=== PATIENT | female | born 1980 | race Caucasian/White ===

== ENCOUNTER 2023-02-14 23:53 | Inpatient (IN) | payer MEDICAID ==
[~2023-02-14] VITALS: Ht 160 cm; Wt 56.7 kg
[2023-02-15 00:06] VITALS: O2SAT 99
[2023-02-15 01:38] LABS: BASOPHILS % 0.3 % (0.0-2.0); DIFFERENTIAL COMMENT 0; EOSINOPHILS % 1.5 % (0.0-5.0); HEMATOCRIT. 34.8 % (36.0-48.0); LYMPHOCYTES % 20.3 % (20.0-50.0); MEAN CORPUSCULAR HEMOGLOBIN 24.1 pg (28.0-32.0); MEAN CORPUSCULAR HGB CONC 31.8 g/dL (31.0-37.0); MEAN CORPUSCULAR VOLUME 75.9 fL (81.0-99.0); MEAN PLATELET VOLUME 8.6 fl (7.4-10.4); NEUTROPHILS % 69.9 % (40.0-76.0); PLATELET 217 x1000/uL (130-400); RED BLOOD CELL COUNT 4.58 mill/uL (4.2-5.4); RED CELL DISTRIBUTION WIDTH 19.2 % (11.6-14.6); WHITE BLOOD COUNT 8.6 x1000/uL (4.5-11.0)
[2023-02-15 01:50] LABS: ALANINE AMINOTRANSFERASE 15 IU/L (10-49); ALBUMIN 3.9 g/dL (3.2-4.8); ASPARTATE AMINOTRANSFERASE 12 IU/L (<34); BILIRUBIN TOTAL 0.4 mg/dL (0.1-1.0); CARBON DIOXIDE 23 mEq/L (21-32); CHLORIDE 98 mEq/L (98-107); CREATININE 0.7 mg/dL (0.6-1.0); GLUCOSE 398 mg/dL (70-105); POTASSIUM 3.9 mEq/L (3.5-5.1); SODIUM 131 mEq/L (136-145); UREA NITROGEN BLOOD 10 mg/dL (9-23)
[2023-02-15] MEDS ORDERED: ONDANSETRON HCL 4MG/2ML INJ IV NR (03:21)
[2023-02-15] MEDS ORDERED: MORPHINE SULFATE 4 MG/ML CPJ (NOT FOR IM USE) IV NR (03:21)
[2023-02-15] MEDS ORDERED: PIPERACILLIN/TAZO 3.375G/50ML 50 ML IV NR (03:30)
[2023-02-15] MEDS ORDERED: VANCOMYCIN 1G PREMIX 200 ML IV NR (03:30)
[2023-02-15] MEDS ORDERED: SODIUM CHLORIDE 0.9% 1000ML BAG (SEPSIS BOLUS) IV ONE (03:30)
[2023-02-15 06:01] LABS: HCG SCREEN NEGATIVE
[2023-02-15] MEDS ORDERED: CEFEPIME 1,000 MG in DEXTROSE 5% WATER 50 ML IV SCH (07:30)
[2023-02-15] MEDS ORDERED: ONDANSETRON HCL 4MG/2ML INJ IV PRN (07:30)
[2023-02-15] MEDS ORDERED: GUAIFENESIN 200MG/10ML SUGAR FREE UDC PO PRN (07:30)
[2023-02-15] MEDS ORDERED: KETOROLAC 30MG/ML VIAL IV NR (07:30)
[2023-02-15] MEDS ORDERED: MAGNESIUM/ALUMINUM HYDROXIDE/SIMETHICONE 30ML UDC PO PRN (07:30)
[2023-02-15] MEDS ORDERED: DOCUSATE SODIUM 100MG CAPSULE PO PRN (07:30)
[2023-02-15] MEDS ORDERED: ACETAMINOPHEN 325MG TABLET PO PRN ×2 (07:30)
[2023-02-15] MEDS ORDERED: IPRATROPIUM/ALBUTEROL 0.5-3(2.5)MG/3ML NEB HHN PRN (07:30)
[2023-02-15] MEDS ORDERED: CEFEPIME 2,000 MG in DEXTROSE 5% WATER 50 ML IV SCH ×2 (08:00→11:00)
[2023-02-15] MEDS: ENOXAPARIN 40MG/0.4ML SYR SUBCUT SCH ×2 (10:00→13:28)
[2023-02-15] MEDS ORDERED: LORAZEPAM 2MG/ML INJ IV PRN (10:15)
[2023-02-15] MEDS: PANTOPRAZOLE SODIUM 40 MG/VIAL IV SCH (12:46)
[2023-02-15] MEDS: NICOTINE 14MG PATCH TD SCH (13:28)
[2023-02-15] MEDS: VANCOMYCIN 1G PREMIX 200 ML IV SCH ×2 (14:33→22:37)
[2023-02-15 16:00] VITALS: BP 99/72; PULSE 72; RESP 19; TEMP 97.9
[2023-02-15 16:19] VITALS: BP 101/70; PULSE 87; RESP 18; TEMP 97.7
[2023-02-15 17:16] LABS: CHOLESTEROL 189 mg/dL (<200); HDL CHOLESTEROL 36 mg/dL (>65); IRON 33 ug/dL (50-170); LDL CHOLESTEROL 133 mg/dL (5-100); TOTAL IRON BINDING CAPACITY 342 ug/dl (250-425); TRIGLYCERIDE 127 mg/dL (0-150)
[2023-02-15 17:19] LABS: ETHANOL BLOOD < 10 mg/dL (<10)
[2023-02-15 18:20] LABS: BETA HYDROXYBUTYRATE 0.2 mMol/L (0.0-0.3)
[2023-02-15] MEDS: CEFEPIME 2,000 MG in DEXT 5% WATER 100 ML IV SCH (18:51)
[2023-02-15 20:00] VITALS: BP 96/53; PULSE 91; RESP 20; TEMP 98.2
[2023-02-15] MEDS ORDERED: VANCOMYCIN 1G PREMIX 200 ML IV SCH (20:00)
[2023-02-15] MEDS: KETOROLAC 15MG/ML VIAL IV PRN (22:30)
[2023-02-16] VITALS: BP 85/53; PULSE 93; RESP 18; TEMP 97.9
[2023-02-16 04:00] VITALS: BP 86/60; PULSE 84; RESP 20; TEMP 97.8
[2023-02-16] MEDS: CEFEPIME 2,000 MG in DEXT 5% WATER 100 ML IV SCH (06:55)
[2023-02-16 07:43] LABS: CALCIUM 8.7 mg/dL (8.7-10.4); CARBON DIOXIDE 25 mEq/L (21-32); CHLORIDE 96 mEq/L (98-107); CREATININE 0.7 mg/dL (0.6-1.0); GLUCOSE 356 mg/dL (70-105); PHOSPHORUS 4.1 mg/dL (2.5-4.9); POTASSIUM 4.3 mEq/L (3.5-5.1); SODIUM 129 mEq/L (136-145); UREA NITROGEN BLOOD 17 mg/dL (9-23)
[2023-02-16 07:52] LABS: BASOPHILS % 0.3 % (0.0-2.0); DIFFERENTIAL COMMENT 0; EOSINOPHILS % 1.7 % (0.0-5.0); HEMATOCRIT. 33.1 % (36.0-48.0); HEMOGLOBIN. 10.4 g/dL (12.0-16.0); LYMPHOCYTES % 16.4 % (20.0-50.0); MEAN CORPUSCULAR HEMOGLOBIN 24.1 pg (28.0-32.0); MEAN CORPUSCULAR HGB CONC 31.4 g/dL (31.0-37.0); MEAN CORPUSCULAR VOLUME 76.7 fL (81.0-99.0); MEAN PLATELET VOLUME 8.8 fl (7.4-10.4); MONOCYTES % 7.4 % (2.0-8.0); NEUTROPHILS % 74.2 % (40.0-76.0); PLATELET 217 x1000/uL (130-400); RED BLOOD CELL COUNT 4.32 mill/uL (4.2-5.4); RED CELL DISTRIBUTION WIDTH 19.4 % (11.6-14.6); WHITE BLOOD COUNT 8.2 x1000/uL (4.5-11.0)
[2023-02-16 08:00] VITALS: BP 102/72; PULSE 85; RESP 18; TEMP 98.2
[2023-02-16] MEDS: SODIUM CHLORIDE 0.9% 1,000 ML IV SCH ×2 (08:00→20:30)
[2023-02-16] MEDS: NICOTINE 14MG PATCH TD SCH (09:08)
[2023-02-16] MEDS: VANCOMYCIN 1G PREMIX 200 ML IV SCH ×2 (09:08→21:30)
[2023-02-16] MEDS: ENOXAPARIN 40MG/0.4ML SYR SUBCUT SCH ×3 (09:08→10:00)
[2023-02-16] MEDS: KETOROLAC 15MG/ML VIAL IV PRN ×2 (09:09→17:26)
[2023-02-16] MEDS: PANTOPRAZOLE SODIUM 40 MG/VIAL IV SCH (09:09)
[2023-02-16] MEDS ORDERED: DEXTROSE 50% WATER 50ML SYRINGE IV PRN ×2 (11:15→18:15)
[2023-02-16 12:00] VITALS: BP 102/71; PULSE 89; RESP 19; TEMP 99.1
[2023-02-16] MEDS: BLOOD SUGAR DIAGNOSTIC STRIP TEST SCH ×3 (12:20→21:00)
[2023-02-16] MEDS: INSULIN LISPRO 100 UNITS/ML SUBCUT SCH ×2 (12:20→21:00)
[2023-02-16] MEDS: CEFTRIAXONE 2 G in DEXTROSE 5% WATER 50 ML IV SCH (14:40)
[2023-02-16 16:00] VITALS: BP 103/73; PULSE 84; RESP 20; TEMP 99
[2023-02-16 18:52] LABS: PROTHROMBIN TIME 10.3 sec (9.6-11.0)
[2023-02-16 19:09] LABS: CREATINE KINASE 26 IU/L (34-145); TROPONIN I HIGH SENSITIVITY 7 ng/L (3.0-34)
[2023-02-16 20:00] VITALS: BP 94/64; PULSE 83; RESP 18; TEMP 98.1
[2023-02-16] MEDS: ATORVASTATIN CALCIUM 40MG TABLET PO SCH (21:00)
[2023-02-16] MEDS: INSULIN GLARGINE 100 UNITS/ML SUBCUT SCH (21:18)
[2023-02-17] MEDS: BLOOD SUGAR DIAGNOSTIC STRIP TEST SCH ×4 (07:20→20:16)
[2023-02-17] MEDS: INSULIN LISPRO 100 UNITS/ML SUBCUT SCH ×7 (07:20→20:16)
[2023-02-17] MEDS ORDERED: LIDOCAINE HCL 1% 10 MG/ML 10ML VIAL ONE (07:36)
[2023-02-17 08:00] VITALS: BP 127/76; PULSE 87; RESP 20; TEMP 96.7
[2023-02-17] MEDS: FAMOTIDINE 20MG TABLET PO SCH ×2 (08:14→21:17)
[2023-02-17] MEDS: ENOXAPARIN 40MG/0.4ML SYR SUBCUT SCH (08:14)
[2023-02-17] MEDS: NICOTINE 14MG PATCH TD SCH (08:14)
[2023-02-17] MEDS: LORAZEPAM 1MG TABLET PO PRN (08:50)
[2023-02-17] MEDS: ASPIRIN 81MG TABLET PO SCH (08:50)
[2023-02-17] MEDS: VANCOMYCIN 1G PREMIX 200 ML IV SCH ×2 (09:00→20:04)
[2023-02-17 11:13] LABS: GLUCOSE URINE 3+ (NEGATIVE); KETONES URINE NEGATIVE (NEGATIVE)
[2023-02-17 12:53] LABS: *AMPHETAMINES SCREEN URINE PRESUMPTIVE POSITIVE (NEGATIVE); *BARBITURATES SCREEN URINE NEGATIVE (NEGATIVE); *BENZODIAZEPINES SCREEN URINE NEGATIVE (NEGATIVE); *COCAINE SCREEN URINE NEGATIVE (NEGATIVE); COLOR URINE YELLOW (YELLOW); ECSTASY MDMA SCREEN URINE NEGATIVE (NEGATIVE); LEUKOCYTE ESTERASE URINE NEGATIVE (NEGATIVE); METHADONE URINE SCREEN Neg (NEGATIVE); NITRITE URINE NEGATIVE (NEGATIVE); OCCULT BLOOD URINE NEGATIVE (NEGATIVE); OPIATES URINE SCREEN NEGATIVE (NEGATIVE); PHENCYCLIDINE URINE SCREEN NEGATIVE (NEGATIVE); PROTEIN URINE TRACE (NEGATIVE); SPECIFIC GRAVITY URINE 1.016 (1.005-1.030); UROBILINOGEN URINE 0.2 E.U./dL (0.2-1.0)
[2023-02-17 12:55] LABS: CLARITY URINE HAZY (CLEAR)
[2023-02-17 13:03] LABS: SQUAMOUS EPITHELIAL CELL URINE 3+ /lpf (RARE/1+)
[2023-02-17 13:04] LABS: BACTERIA URINE 1+; YEAST URINE 1+
[2023-02-17 13:05] LABS: RBC URINE NONE SEEN /hpf (0-2)
[2023-02-17] MEDS: CEFTRIAXONE 2 G in DEXTROSE 5% WATER 50 ML IV SCH (17:00)
[2023-02-17] MEDS: SODIUM CHLORIDE 0.9% 1,000 ML IV SCH ×2 (17:58→21:30)
[2023-02-17] MEDS: KETOROLAC 15MG/ML VIAL IV PRN (17:58)
[2023-02-17 20:00] VITALS: BP 90/66; PULSE 81; RESP 18; TEMP 97.9
[2023-02-17] MEDS: ATORVASTATIN CALCIUM 40MG TABLET PO SCH (21:17)
[2023-02-17] MEDS: INSULIN GLARGINE 100 UNITS/ML SUBCUT SCH (21:36)
[2023-02-18] MEDS: KETOROLAC 15MG/ML VIAL IV PRN ×2 (03:10→11:23)
[2023-02-18] MEDS: BLOOD SUGAR DIAGNOSTIC STRIP TEST SCH ×4 (06:56→20:57)
[2023-02-18] MEDS: INSULIN LISPRO 100 UNITS/ML SUBCUT SCH ×7 (06:58→22:20)
[2023-02-18 07:44] LABS: BASOPHILS % 0.3 % (0.0-2.0); DIFFERENTIAL COMMENT 0; EOSINOPHILS % 1.1 % (0.0-5.0); HEMATOCRIT. 33.9 % (36.0-48.0); HEMOGLOBIN. 10.8 g/dL (12.0-16.0); MEAN CORPUSCULAR HEMOGLOBIN 24.2 pg (28.0-32.0); MEAN CORPUSCULAR HGB CONC 31.8 g/dL (31.0-37.0); MEAN CORPUSCULAR VOLUME 76.2 fL (81.0-99.0); MEAN PLATELET VOLUME 8.2 fl (7.4-10.4); MONOCYTES % 5.1 % (2.0-8.0); NEUTROPHILS % 75.5 % (40.0-76.0); PLATELET 228 x1000/uL (130-400); RED BLOOD CELL COUNT 4.45 mill/uL (4.2-5.4); RED CELL DISTRIBUTION WIDTH 19.3 % (11.6-14.6)
[2023-02-18 08:00] VITALS: BP 105/69; PULSE 82; RESP 18; TEMP 98.2
[2023-02-18 08:06] LABS: CALCIUM 8.7 mg/dL (8.7-10.4); CARBON DIOXIDE 26 mEq/L (21-32); CHLORIDE 98 mEq/L (98-107); CREATININE 0.7 mg/dL (0.6-1.0); GLUCOSE 204 mg/dL (70-105); PHOSPHORUS 4.5 mg/dL (2.5-4.9); POTASSIUM 4.2 mEq/L (3.5-5.1); SODIUM 133 mEq/L (136-145); UREA NITROGEN BLOOD 16 mg/dL (9-23)
[2023-02-18] MEDS ORDERED: LIDOCAINE HCL 1% 10 MG/ML 10ML VIAL ONE (09:03)
[2023-02-18] MEDS: ASPIRIN 81MG TABLET PO SCH (09:13)
[2023-02-18] MEDS: FAMOTIDINE 20MG TABLET PO SCH ×2 (09:13→21:01)
[2023-02-18] MEDS: LORAZEPAM 1MG TABLET PO PRN (09:13)
[2023-02-18] MEDS: NICOTINE 14MG PATCH TD SCH (09:14)
[2023-02-18] MEDS: ENOXAPARIN 40MG/0.4ML SYR SUBCUT SCH (10:00)
[2023-02-18] MEDS: VANCOMYCIN 1G PREMIX 200 ML IV SCH (11:15)
[2023-02-18 12:00] VITALS: BP 129/71; PULSE 75; RESP 19; TEMP 97.5
[2023-02-18] MEDS: CEFTRIAXONE 2 G in DEXTROSE 5% WATER 50 ML IV SCH (14:09)
[2023-02-18] MEDS ORDERED: NALOXONE HCL 0.4MG/ML VIAL IV PRN (15:45)
[2023-02-18] MEDS ORDERED: MAGNESIUM 2 G PREMIX 50 ML IV NR (17:00)
[2023-02-18] MEDS ORDERED: VANCOMYCIN 750MG PREMIX 150 ML IV SCH (21:00)
[2023-02-18] MEDS: ATORVASTATIN CALCIUM 40MG TABLET PO SCH (21:01)
[2023-02-18] MEDS: HYDROCODONE/ACETAMINOPHEN 5/325MG TABLET PO PRN (21:02)
[2023-02-18] MEDS: INSULIN GLARGINE 100 UNITS/ML SUBCUT SCH (21:09)
[2023-02-18] MEDS: SODIUM CHLORIDE 0.9% 1,000 ML IV SCH (22:23)
[2023-02-18] MEDS ORDERED: IOHEXOL-350 100 ML BOTTLE ONE (23:21)
[2023-02-19] MEDS: HYDROCODONE/ACETAMINOPHEN 5/325MG TABLET PO PRN ×2 (03:10→22:33)
[2023-02-19 04:00] VITALS: BP 124/63; PULSE 79; RESP 17; TEMP 97.9
[2023-02-19 06:17] LABS: BASOPHILS % 0.4 % (0.0-2.0); DIFFERENTIAL COMMENT 0; EOSINOPHILS % 1.8 % (0.0-5.0); HEMATOCRIT. 30.5 % (36.0-48.0); HEMOGLOBIN. 9.7 g/dL (12.0-16.0); LYMPHOCYTES % 15.2 % (20.0-50.0); MEAN CORPUSCULAR HEMOGLOBIN 24.2 pg (28.0-32.0); MEAN CORPUSCULAR HGB CONC 31.8 g/dL (31.0-37.0); MEAN CORPUSCULAR VOLUME 76.2 fL (81.0-99.0); MEAN PLATELET VOLUME 8.3 fl (7.4-10.4); MONOCYTES % 5.9 % (2.0-8.0); NEUTROPHILS % 76.7 % (40.0-76.0); PLATELET 224 x1000/uL (130-400); RED CELL DISTRIBUTION WIDTH 19.2 % (11.6-14.6); WHITE BLOOD COUNT 7.7 x1000/uL (4.5-11.0)
[2023-02-19 06:37] LABS: CALCIUM 8.6 mg/dL (8.7-10.4); CARBON DIOXIDE 31 mEq/L (21-32); CHLORIDE 98 mEq/L (98-107); CREATININE 0.6 mg/dL (0.6-1.0); GLUCOSE 240 mg/dL (70-105); PHOSPHORUS 3.5 mg/dL (2.5-4.9); POTASSIUM 4.3 mEq/L (3.5-5.1); SODIUM 134 mEq/L (136-145); UREA NITROGEN BLOOD 16 mg/dL (9-23)
[2023-02-19] MEDS: BLOOD SUGAR DIAGNOSTIC STRIP TEST SCH ×4 (06:59→21:00)
[2023-02-19] MEDS: INSULIN LISPRO 100 UNITS/ML SUBCUT SCH ×7 (07:15→23:02)
[2023-02-19] MEDS ORDERED: LIDOCAINE HCL 1% 20ML VIAL (Pyxis) INJ ONE (07:30)
[2023-02-19] MEDS ORDERED: IODIXANOL 320MG/ML 100 ML BOTTLE IV ONE ×2 (07:30→08:55)
[2023-02-19] MEDS ORDERED: FENTANYL CITRATE/PF 50MCG/ML 2ML VIAL ONE (07:45)
[2023-02-19] MEDS ORDERED: MIDAZOLAM HCL 5 MG/5 ML VIAL ONE (07:45)
[2023-02-19] MEDS ORDERED: HEPARIN 1000 UNITS/ML 10ML ONE (07:46)
[2023-02-19] MEDS: NICOTINE 14MG PATCH TD SCH (09:00)
[2023-02-19] MEDS: FAMOTIDINE 20MG TABLET PO SCH ×2 (09:00→22:32)
[2023-02-19] MEDS ORDERED: CLOPIDOGREL 75MG TABLET ONE (09:31)
[2023-02-19] MEDS ORDERED: ASPIRIN 81MG TABLET ONE (09:32)
[2023-02-19] MEDS ORDERED: SODIUM CHLORIDE 0.9% 1,000 ML IV SCH (10:15)
[2023-02-19] MEDS: ASPIRIN 81MG TABLET PO SCH (15:00)
[2023-02-19] MEDS: AMPICILLIN SOD/SULBACTAM NA 3 G in SODIUM CHLORIDE 0.9% 100 ML IV SCH ×2 (16:00→22:32)
[2023-02-19] MEDS ORDERED: MORPHINE SULFATE 2 MG/ML CPJ (NOT FOR IM USE) IV NR (18:15)
[2023-02-19 20:00] VITALS: BP 148/79; PULSE 74; RESP 20; TEMP 98.8
[2023-02-19] MEDS: INSULIN GLARGINE 100 UNITS/ML SUBCUT SCH (22:00)
[2023-02-19] MEDS: ATORVASTATIN CALCIUM 40MG TABLET PO SCH (22:32)
[2023-02-20] VITALS: BP 156/86; PULSE 74; RESP 20; TEMP 98.3
[2023-02-20] MEDS: AMPICILLIN SOD/SULBACTAM NA 3 G in SODIUM CHLORIDE 0.9% 100 ML IV SCH ×4 (05:00→21:22)
[2023-02-20] MEDS: INSULIN LISPRO 100 UNITS/ML SUBCUT SCH ×7 (07:20→21:00)
[2023-02-20 08:00] VITALS: BP 129/75; PULSE 76; RESP 19; TEMP 96.1
[2023-02-20] MEDS: BLOOD SUGAR DIAGNOSTIC STRIP TEST SCH ×4 (08:17→21:03)
[2023-02-20] MEDS: FAMOTIDINE 20MG TABLET PO SCH ×2 (08:54→20:58)
[2023-02-20] MEDS: CLOPIDOGREL 75MG TABLET PO SCH (08:54)
[2023-02-20] MEDS: ASPIRIN 81MG TABLET PO SCH (08:54)
[2023-02-20] MEDS: MORPHINE SULFATE 2 MG/ML CPJ (NOT FOR IM USE) IV PRN ×3 (09:43→21:03)
[2023-02-20] MEDS: NICOTINE 14MG PATCH TD SCH (09:45)
[2023-02-20 12:00] VITALS: BP 147/81; PULSE 76; RESP 20; TEMP 97.6
[2023-02-20 18:28] LABS: BASOPHILS % 0.4 % (0.0-2.0); DIFFERENTIAL COMMENT 0; HEMATOCRIT. 30.3 % (36.0-48.0); HEMOGLOBIN. 9.5 g/dL (12.0-16.0); LYMPHOCYTES % 20.9 % (20.0-50.0); MEAN CORPUSCULAR HEMOGLOBIN 23.9 pg (28.0-32.0); MEAN CORPUSCULAR HGB CONC 31.3 g/dL (31.0-37.0); MEAN CORPUSCULAR VOLUME 76.4 fL (81.0-99.0); MONOCYTES % 6.9 % (2.0-8.0); NEUTROPHILS % 69.8 % (40.0-76.0); PLATELET 243 x1000/uL (130-400); RED BLOOD CELL COUNT 3.97 mill/uL (4.2-5.4); RED CELL DISTRIBUTION WIDTH 19.7 % (11.6-14.6); WHITE BLOOD COUNT 7.6 x1000/uL (4.5-11.0)
[2023-02-20 18:39] LABS: PROTHROMBIN TIME 11.2 sec (9.6-11.0)
[2023-02-20 18:55] LABS: CALCIUM 8.4 mg/dL (8.7-10.4); CARBON DIOXIDE 26 mEq/L (21-32); CHLORIDE 102 mEq/L (98-107); CREATININE 0.6 mg/dL (0.6-1.0); GLUCOSE 110 mg/dL (70-105); POTASSIUM 4.1 mEq/L (3.5-5.1); SODIUM 136 mEq/L (136-145); UREA NITROGEN BLOOD 11 mg/dL (9-23)
[2023-02-20 20:00] VITALS: BP 137/80; PULSE 79; RESP 18; TEMP 97.7
[2023-02-20] MEDS: ATORVASTATIN CALCIUM 40MG TABLET PO SCH (20:58)
[2023-02-20] MEDS: INSULIN GLARGINE 100 UNITS/ML SUBCUT SCH (21:27)
[2023-02-21] MEDS: MORPHINE SULFATE 2 MG/ML CPJ (NOT FOR IM USE) IV PRN ×4 (01:15→21:12)
[2023-02-21 04:00] VITALS: PULSE 82; RESP 19; TEMP 97.7
[2023-02-21] MEDS: AMPICILLIN SOD/SULBACTAM NA 3 G in SODIUM CHLORIDE 0.9% 100 ML IV SCH ×4 (04:00→23:08)
[2023-02-21] MEDS: BLOOD SUGAR DIAGNOSTIC STRIP TEST SCH ×4 (06:33→20:58)
[2023-02-21 06:41] LABS: BASOPHILS % 0.5 % (0.0-2.0); DIFFERENTIAL COMMENT 0; EOSINOPHILS % 2.9 % (0.0-5.0); HEMATOCRIT. 31.1 % (36.0-48.0); HEMOGLOBIN. 9.8 g/dL (12.0-16.0); LYMPHOCYTES % 23.4 % (20.0-50.0); MEAN CORPUSCULAR HEMOGLOBIN 24.3 pg (28.0-32.0); MEAN CORPUSCULAR HGB CONC 31.5 g/dL (31.0-37.0); MEAN CORPUSCULAR VOLUME 77.2 fL (81.0-99.0); MEAN PLATELET VOLUME 7.9 fl (7.4-10.4); MONOCYTES % 8.8 % (2.0-8.0); NEUTROPHILS % 64.4 % (40.0-76.0); PLATELET 254 x1000/uL (130-400); RED BLOOD CELL COUNT 4.03 mill/uL (4.2-5.4); RED CELL DISTRIBUTION WIDTH 19.5 % (11.6-14.6); WHITE BLOOD COUNT 7.2 x1000/uL (4.5-11.0)
[2023-02-21 07:05] LABS: CALCIUM 8.6 mg/dL (8.7-10.4); CARBON DIOXIDE 28 mEq/L (21-32); CHLORIDE 100 mEq/L (98-107); CREATININE 0.6 mg/dL (0.6-1.0); GLUCOSE 237 mg/dL (70-105); POTASSIUM 4.7 mEq/L (3.5-5.1); SODIUM 133 mEq/L (136-145); UREA NITROGEN BLOOD 11 mg/dL (9-23)
[2023-02-21] MEDS: INSULIN LISPRO 100 UNITS/ML SUBCUT SCH ×7 (07:20→21:07)
[2023-02-21 08:00] VITALS: BP 144/83; PULSE 80; RESP 19; TEMP 98.1
[2023-02-21] MEDS: NICOTINE 14MG PATCH TD SCH (08:34)
[2023-02-21] MEDS: ASPIRIN 81MG TABLET PO SCH (08:38)
[2023-02-21] MEDS: FAMOTIDINE 20MG TABLET PO SCH ×2 (08:38→21:25)
[2023-02-21] MEDS: CLOPIDOGREL 75MG TABLET PO SCH (08:38)
[2023-02-21] MEDS ORDERED: LIDOCAINE HCL 1% 10 MG/ML 10ML VIAL ONE ×2 (12:28→13:11)
[2023-02-21] MEDS ORDERED: BUPIVACAINE HCL/PF 0.5% (5MG/ML) 10ML ONE (12:28)
[2023-02-21] MEDS ORDERED: POLYMYXIN B SULFATE 500000 UNITS/VIAL ONE (12:33)
[2023-02-21] MEDS ORDERED: BACITRACIN 14GM TUBE TOP ONE (12:33)
[2023-02-21] MEDS ORDERED: GENTAMICIN SULF 40MG/ML 2ML VIAL ONE (12:34)
[2023-02-21] MEDS ORDERED: TRIAMCINOLONE ACETONIDE 40MG/ML 1ML VIAL ONE (12:35)
[2023-02-21] MEDS ORDERED: METOCLOPRAMIDE HCL 10MG/2ML VIAL ONE (13:11)
[2023-02-21] MEDS ORDERED: ONDANSETRON HCL 4MG/2ML INJ ONE (13:11)
[2023-02-21] MEDS ORDERED: CEFAZOLIN SODIUM 1000MG/VIAL ONE (13:11)
[2023-02-21] MEDS ORDERED: PROPOFOL 200MG/20ML VIAL IV ONE (13:11)
[2023-02-21] MEDS ORDERED: DEXAMETHASONE 4MG/ML 1ML VIAL ONE (13:11)
[2023-02-21] MEDS ORDERED: FENTANYL CITRATE/PF 50MCG/ML 2ML VIAL ONE (13:11)
[2023-02-21] MEDS ORDERED: MIDAZOLAM HCL 2 MG/2 ML VIAL ONE (13:12)
[2023-02-21] MEDS ORDERED: ALBUTEROL 6.7GM HFA INHALER ONE (13:22)
[2023-02-21] MEDS ORDERED: FENTANYL CITRATE/PF 50MCG/ML 2ML VIAL IV PRN (14:45)
[2023-02-21] MEDS ORDERED: HYDROMORPHONE HCL/PF 2MG/ML CPJ IV PRN (14:45)
[2023-02-21 20:00] VITALS: BP 143/66; PULSE 18; PULSE 83; RESP 18; TEMP 97.7
[2023-02-21] MEDS: INSULIN GLARGINE 100 UNITS/ML SUBCUT SCH (20:25)
[2023-02-21] MEDS ORDERED: INSULIN GLARGINE 100 UNITS/ML SUBCUT NR (21:00)
[2023-02-21] MEDS: ATORVASTATIN CALCIUM 40MG TABLET PO SCH (21:25)
[2023-02-21] MEDS ORDERED: INSULIN GLARGINE 100 UNITS/ML SUBCUT SCH (22:00)
[2023-02-22] VITALS: BP 140/76; PULSE 80; RESP 18; TEMP 97.8
[2023-02-22] MEDS: MORPHINE SULFATE 2 MG/ML CPJ (NOT FOR IM USE) IV PRN ×3 (02:42→21:55)
[2023-02-22 04:00] VITALS: BP 141/76; PULSE 89; RESP 18; TEMP 97.7
[2023-02-22] MEDS: AMPICILLIN SOD/SULBACTAM NA 3 G in SODIUM CHLORIDE 0.9% 100 ML IV SCH ×4 (05:41→21:55)
[2023-02-22] MEDS: BLOOD SUGAR DIAGNOSTIC STRIP TEST SCH ×4 (06:53→21:30)
[2023-02-22] MEDS ORDERED: INSULIN LISPRO 100 UNITS/ML SUBCUT NR (07:15)
[2023-02-22] MEDS: INSULIN LISPRO 100 UNITS/ML SUBCUT SCH ×6 (07:25→21:45)
[2023-02-22 08:00] VITALS: BP 150/77; PULSE 84; RESP 20; TEMP 98.4
[2023-02-22 08:01] LABS: CALCIUM 9.1 mg/dL (8.7-10.4); CARBON DIOXIDE 24 mEq/L (21-32); CHLORIDE 95 mEq/L (98-107); CREATININE 0.7 mg/dL (0.6-1.0); GLUCOSE 390 mg/dL (70-105); SODIUM 129 mEq/L (136-145); UREA NITROGEN BLOOD 17 mg/dL (9-23)
[2023-02-22] MEDS: FAMOTIDINE 20MG TABLET PO SCH ×2 (08:29→21:44)
[2023-02-22] MEDS: CLOPIDOGREL 75MG TABLET PO SCH (08:29)
[2023-02-22] MEDS: ASPIRIN 81MG TABLET PO SCH (08:29)
[2023-02-22] MEDS: NICOTINE 14MG PATCH TD SCH (09:00)
[2023-02-22 09:05] LABS: BASOPHILS % 0.3 % (0.0-2.0); DIFFERENTIAL COMMENT 0; EOSINOPHILS % 0.1 % (0.0-5.0); HEMATOCRIT. 30.1 % (36.0-48.0); HEMOGLOBIN. 9.3 g/dL (12.0-16.0); LYMPHOCYTES % 10.1 % (20.0-50.0); MEAN CORPUSCULAR HEMOGLOBIN 24.2 pg (28.0-32.0); MEAN PLATELET VOLUME 8.3 fl (7.4-10.4); MONOCYTES % 4.8 % (2.0-8.0); NEUTROPHILS % 84.7 % (40.0-76.0); PLATELET 285 x1000/uL (130-400); RED BLOOD CELL COUNT 3.86 mill/uL (4.2-5.4); RED CELL DISTRIBUTION WIDTH 19.4 % (11.6-14.6); WHITE BLOOD COUNT 12.1 x1000/uL (4.5-11.0)
[2023-02-22] MEDS: INSULIN GLARGINE 100 UNITS/ML SUBCUT SCH ×2 (11:00→22:17)
[2023-02-22] MEDS ORDERED: INSULIN LISPRO 100 UNITS/ML SUBCUT SCH (12:20)
[2023-02-22 16:00] VITALS: BP 131/64; PULSE 89; RESP 19; TEMP 97.7
[2023-02-22 16:09] LABS: BG CARBOXYHEMOGLOBIN 0.3 % (0.5-1.5); BG DEOXYHEMOGLOBIN 4.9 % (0.0-5.0); BG FRACTION INSPIRED OXYGEN 21; BG METHEMOGLOBIN 0.3 % (0.0-1.5); BG OXYGEN SATURATION 95.1 % (92.0-98.5); BG OXYHEMOGLOBIN 94.5 % (94.0-97.0); BG PCO2 35.6 mmHg (35.0-45.0); BG PH 7.514 (7.350-7.450); BG PO2 73.3 mmHg (75.0-100.0); BG SAMPLE SITE RIGHT BRACHIAL; BG TOTAL HEMOGLOBIN 10.4 g/dL (12.0-18.0); BG VENT MODE ROOM AIR
[2023-02-22 20:00] VITALS: BP 113/62; PULSE 84; RESP 18; TEMP 97.9
[2023-02-22] MEDS: ATORVASTATIN CALCIUM 40MG TABLET PO SCH (21:44)
[2023-02-22] MEDS: SODIUM CHLORIDE 0.9% 1,000 ML IV SCH (23:45)
[2023-02-23] MEDS: MORPHINE SULFATE 2 MG/ML CPJ (NOT FOR IM USE) IV PRN ×4 (02:57→21:30)
[2023-02-23 04:00] VITALS: BP 101/61; PULSE 72; RESP 18; TEMP 97.4
[2023-02-23] MEDS: AMPICILLIN SOD/SULBACTAM NA 3 G in SODIUM CHLORIDE 0.9% 100 ML IV SCH ×4 (04:04→21:28)
[2023-02-23] MEDS: BLOOD SUGAR DIAGNOSTIC STRIP TEST SCH ×4 (06:55→21:05)
[2023-02-23] MEDS: INSULIN LISPRO 100 UNITS/ML SUBCUT SCH ×7 (07:20→21:37)
[2023-02-23] MEDS: FAMOTIDINE 20MG TABLET PO SCH ×2 (07:54→21:28)
[2023-02-23] MEDS: CLOPIDOGREL 75MG TABLET PO SCH (07:54)
[2023-02-23] MEDS: ASPIRIN 81MG TABLET PO SCH (07:54)
[2023-02-23 08:00] VITALS: BP 155/81; PULSE 108; RESP 20; TEMP 96.7
[2023-02-23] MEDS: NICOTINE 14MG PATCH TD SCH (09:00)
[2023-02-23] MEDS: INSULIN GLARGINE 100 UNITS/ML SUBCUT SCH ×2 (10:00→21:55)
[2023-02-23] MEDS ORDERED: LIP40 MT (10:47)
[2023-02-23] MEDS ORDERED: ASPI-1406 MT (10:47)
[2023-02-23] MEDS ORDERED: INSU100I68 SUBCUT ×2 (10:47)
[2023-02-23] MEDS ORDERED: CLOP-31 MT (10:47)
[2023-02-23 12:00] VITALS: BP 91/57; PULSE 83; RESP 19; TEMP 97.6
[2023-02-23 20:00] VITALS: BP 109/58; PULSE 91; RESP 19; TEMP 97.6
[2023-02-23] MEDS ORDERED: INSULIN LISPRO 100 UNITS/ML SUBCUT NR (21:00)
[2023-02-23] MEDS: ATORVASTATIN CALCIUM 40MG TABLET PO SCH (21:28)
[2023-02-24] VITALS: BP 116/70; PULSE 91; RESP 18; TEMP 97.9
[2023-02-24] MEDS: SODIUM CHLORIDE 0.9% 1,000 ML IV SCH (01:29)
[2023-02-24] MEDS: MORPHINE SULFATE 2 MG/ML CPJ (NOT FOR IM USE) IV PRN ×2 (02:55→09:16)
[2023-02-24] MEDS: AMPICILLIN SOD/SULBACTAM NA 3 G in SODIUM CHLORIDE 0.9% 100 ML IV SCH ×2 (04:01→09:09)
[2023-02-24] MEDS: BLOOD SUGAR DIAGNOSTIC STRIP TEST SCH (07:12)
[2023-02-24] MEDS: INSULIN LISPRO 100 UNITS/ML SUBCUT SCH ×2 (07:23→07:27)
[2023-02-24 08:00] VITALS: BP 133/69; PULSE 88; RESP 18; TEMP 99.1
[2023-02-24] MEDS: CLOPIDOGREL 75MG TABLET PO SCH (09:09)
[2023-02-24] MEDS: FAMOTIDINE 20MG TABLET PO SCH (09:09)
[2023-02-24] MEDS: NICOTINE 14MG PATCH TD SCH (09:09)
[2023-02-24] MEDS: ASPIRIN 81MG TABLET PO SCH (09:09)
[2023-02-24 09:16] VITALS: BP 133/69; PULSE 88; RESP 18
[2023-02-24] MEDS: INSULIN GLARGINE 100 UNITS/ML SUBCUT SCH (10:16)
== END 2023-02-24 11:55 | disposition left against medical advice (07) | DRG 182 ==
LOC: ER 23:53 → MICUSO 02-15 05:33 → 6EST 02-15 08:53
PROVIDERS: ADMIT Internal Medicine; ATTEND Internal Medicine
PROC: 02HV33Z Insertion of Infusion Device into Superior Vena Cava, Percutaneous Approach (ICD-10-PCS; 2023-02-18)
PROC: B548ZZA Ultrasonography of Superior Vena Cava, Guidance (ICD-10-PCS; 2023-02-18)
PROC: 047L3Z1 Dilation of Left Femoral Artery using Drug-Coated Balloon, Percutaneous Approach (ICD-10-PCS; 2023-02-19)
PROC: 047N3Z1 Dilation of Left Popliteal Artery using Drug-Coated Balloon, Percutaneous Approach (ICD-10-PCS; 2023-02-19)
PROC: B41D1ZZ Fluoroscopy of Aorta and Bilateral Lower Extremity Arteries using Low Osmolar Contrast (ICD-10-PCS; 2023-02-19)
PROC: 0QBP0ZZ Excision of Left Metatarsal, Open Approach (ICD-10-PCS; principal; 2023-02-21)
PROC: 0HBNXZZ Excision of Left Foot Skin, External Approach (ICD-10-PCS; 2023-02-21)
DX: E11.51 Type 2 diabetes mellitus with diabetic peripheral angiopathy without gangrene (principal); M86.8X7 Other osteomyelitis, ankle and foot; E87.1 Hypo-osmolality and hyponatremia; E11.621 Type 2 diabetes mellitus with foot ulcer; L03.116 Cellulitis of left lower limb; I70.92 Chronic total occlusion of artery of the extremities; I70.222 Atherosclerosis of native arteries of extremities with rest pain, left leg; Z53.29 Procedure and treatment not carried out because of patient's decision for other reasons; E11.69 Type 2 diabetes mellitus with other specified complication; L97.529 Non-pressure chronic ulcer of other part of left foot with unspecified severity; D50.9 Iron deficiency anemia, unspecified; E11.65 Type 2 diabetes mellitus with hyperglycemia; F17.210 Nicotine dependence, cigarettes, uncomplicated; E11.628 Type 2 diabetes mellitus with other skin complications; J45.909 Unspecified asthma, uncomplicated; F15.90 Other stimulant use, unspecified, uncomplicated; E78.5 Hyperlipidemia, unspecified; L02.612 Cutaneous abscess of left foot; Z99.3 Dependence on wheelchair; Z79.82 Long term (current) use of aspirin; Z79.4 Long term (current) use of insulin; Z79.02 Long term (current) use of antithrombotics/antiplatelets; Z85.118 Personal history of other malignant neoplasm of bronchus and lung
CPT/HCPCS: 36415; 36573; 36600; 37224; 71045; 73630; 73700; 75635; 75710; 80048; 80053; 80061; 80202; 80305; 80320; 81003; 82010; 82375; 82533; 82550; 82728; 82805; 82962; 83036; 83540; 83550; 83605; 83735; 83880; 84100; 84145; 84484; 84703; 85025; 85347; 85651; 86850; 86900; 87070; 87075; 87077; 87186; 87426; 88305; 88311; 93005; 93923; 93970; 99291; C1725; C1760; C1769; C1887; C1893; C1894; C9113; J0295; J0690; J0692; J0696; J1100; J1580; J1644; J1650; J1815; J1885; J2250; J2270; J2405; J2704; J2765; J3010; J3301; J3370; J3475; J3490; J7030; J7050; J7060; Q9967; G0480